=== PATIENT | female | born 1940 | race Caucasian/White ===

== ENCOUNTER → 2016-06-22 | Outpatient (CLI) | payer MEDICARE ==
[~2016-06-22] MED LIST: AUGMENTIN 875875 MG PO; AVELOX400 MG PO; BACTRIM DS 8001 TA1 PO; BREO ELLIPTA 11 EACH IH; CARDIZEM CD120 MG PO; CIPROFLOXACIN500 MG PO; COREG25 MG PO; CYCLOBENZAPRINE10 MG PO; DARVOCET N 1001 TAB PO; DIGOXIN PO; DIGOXIN0.25 MG PO; ELIQUIS5 M1 PO; HYDROCODONE BIT1 T11 PO; KEFLEX500 MG PO; KLOR-CON M2020 ME1 PO; KLOR-CON20 MEQ PO; LANOXIN0.125 MG PO; LEVOFLOXACIN500 MG PO; LISINOPRIL HCTZ PO; LISINOPRIL/HCTZ1 TA3 PO; MEDROL DOSEPAK4 MG PO; TAPAZOLE5 MG PO; ULTRAM50 MG PO; VICODIN 5/500 505 MG PO; VICODIN ES 7501 TAB PO; WARFARIN SOD5 MG PO; WARFARIN4 MG PO; ZITHROMAX Z PA250 MG PO; [UNRECOGNIZED DRUG - OTHER] PO
[2016-06-22 10:33] LABS: BASO % 0.6 % (0.0-1.0); EOS # 0.1 10*3/uL (0.0-0.4); EOS % 2.7 % (1.0-4.0); HEMATOCRIT 37.4 % (37.0-47.0); HEMOGLOBIN 11.8 g/dl (12.0-16.0); LYMPH # 1.3 10*3/uL (1.3-4.4); LYMPH % 25.1 % (27.0-41.0); MEAN CELL VOLUME 82.6 fl (81.0-99.0); MEAN CORPUSCULAR HGB CONC 31.6 g/dl (33.0-37.0); MEAN PLATELET VOLUME 9.4 fl (9.6-12.3); MONO # 0.5 10*3/uL (0.1-1.0); MONO % 9.1 % (3.0-9.0); NEUT # 3.2 10*3/uL (2.3-7.9); NEUT % 62.3 % (47.0-73.0); PLATELET COUNT AUTOMATED 237 10*3/uL (130-400); RED BLOOD COUNT 4.53 10*6/uL (4.10-5.10); RED CELL DISTRI WIDTH 15.3 % (0-14.5); WHITE BLOOD COUNT 5.2 10*3/uL (4.8-10.8)
[2016-06-22 11:00] LABS: ALBUMIN 3.4 gm/dl (3.1-4.5); ALKALINE PHOSPHATASE 113 U/L (45-117); BILIRUBIN, DIRECT 0.1 mg/dL (0.0-0.2); BILIRUBIN, TOTAL 0.4 mg/dl (0.2-1.0); BUN 15 mg/dl (7-24); CARBON DIOXIDE 28 mmol/L (21-32); CHLORIDE 104 mmol/L (98-107); CHOLESTEROL 156 mg/dL (<200); EST GLOM FILT AFRICAN AMERICAN > 60 ml/min; GLUCOSE 84 mg/dL (65-99); HDL CHOLESTEROL 72 mg/dl (40-60); LDL CHOLESTEROL 62 mg/dL (9-159); POTASSIUM 4.3 mmol/L (3.5-5.1); SGOT/AST 13 IU/L (3-35); SGPT/ALT 17 U/L (12-78); SODIUM 140 mmol/L (136-145); THYROXINE (T4) TOTAL 10.6 ug/dl (4.8-13.9); TOTAL PROTEIN 7.1 gm/dL (6.4-8.2); TRIGLYCERIDES 108 mg/dl (<150); VLDL CHOLESTEROL 22 mg/dL (6-40)
[2016-06-23 07:08] LABS: FREE T3 010389 3.1 pg/mL (2.0-4.4); THYROID PEROXIDASE (TPO) AB 8 IU/mL (0-34)
[2016-06-25 16:13] LABS: THYROGLOBULIN ANTIBODY <1.0 IU/mL (0.0-0.9)
== END | disposition home or self-care (01) ==
LOC: LAB 10:12
PROVIDERS: Family Medicine
DX: I10 Essential (primary) hypertension (principal); J44.9 Chronic obstructive pulmonary disease, unspecified; E03.9 Hypothyroidism, unspecified; I49.9 Cardiac arrhythmia, unspecified

== ENCOUNTER 2016-09-09 17:10 | Emergency (ER) | payer MEDICARE ==
[~2016-09-09] VITALS: Wt 72.6 kg
[2016-09-09 17:11] VITALS: BP 160/65
== END 2016-09-09 18:23 | disposition home or self-care (01) ==
LOC: ED 17:10
DX: G89.29 Other chronic pain (principal); M54.6 Pain in thoracic spine; R03.0 Elevated blood-pressure reading, without diagnosis of hypertension; Z79.899 Other long term (current) drug therapy; Z95.0 Presence of cardiac pacemaker

== ENCOUNTER → 2016-11-17 | Outpatient (CLI) | payer MEDICARE ==
[2016-11-17 09:45] LABS: BASO % 0.6 % (0.0-1.0); EOS # 0.1 10*3/uL (0.0-0.4); EOS % 2.4 % (1.0-4.0); HEMATOCRIT 36.4 % (37.0-47.0); HEMOGLOBIN 11.3 g/dl (12.0-16.0); LYMPH # 1.2 10*3/uL (1.3-4.4); MEAN CELL VOLUME 83.7 fl (81.0-99.0); MONO # 0.6 10*3/uL (0.1-1.0); MONO % 10.6 % (3.0-9.0); NEUT # 3.4 10*3/uL (2.3-7.9); PLATELET COUNT AUTOMATED 234 10*3/uL (130-400); RED BLOOD COUNT 4.35 10*6/uL (4.10-5.10); RED CELL DISTRI WIDTH 15.2 % (0-14.5); WHITE BLOOD COUNT 5.4 10*3/uL (4.8-10.8)
[2016-11-17 09:54] LABS: ALBUMIN 3.5 gm/dl (3.1-4.5); ALKALINE PHOSPHATASE 121 U/L (45-117); BILIRUBIN, DIRECT 0.1 mg/dL (0.0-0.2); BILIRUBIN, TOTAL 0.5 mg/dl (0.2-1.0); BUN 19 mg/dl (7-24); CARBON DIOXIDE 31 mmol/L (21-32); CHLORIDE 104 mmol/L (98-107); EST GLOM FILT AFRICAN AMERICAN > 60 ml/min; GLUCOSE 108 mg/dL (65-99); POTASSIUM 4.3 mmol/L (3.5-5.1); SGOT/AST 13 IU/L (3-35); SGPT/ALT 17 U/L (12-78); SODIUM 139 mmol/L (136-145)
== END | disposition home or self-care (01) ==
LOC: LAB 09:13
PROVIDERS: Family Medicine
DX: I48.91 Unspecified atrial fibrillation (principal)

== ENCOUNTER 2016-12-03 01:52 | Emergency (ER) | payer MEDICARE ==
[~2016-12-03] VITALS: Ht 172.7 cm; Wt 74.8 kg
[2016-12-03 03:17] LABS: BASO % 0.4 % (0.0-1.0); EOS # 0.1 10*3/uL (0.0-0.4); EOS % 1.3 % (1.0-4.0); HEMATOCRIT 41.1 % (37.0-47.0); HEMOGLOBIN 13.2 g/dl (12.0-16.0); LYMPH # 1.5 10*3/uL (1.3-4.4); LYMPH % 15.7 % (27.0-41.0); MEAN CELL VOLUME 81.9 fl (81.0-99.0); MEAN CORPUSCULAR HGB 26.3 pg (27.0-31.0); MEAN CORPUSCULAR HGB CONC 32.1 g/dl (33.0-37.0); MEAN PLATELET VOLUME 10.6 fl (9.6-12.3); MONO # 0.8 10*3/uL (0.1-1.0); MONO % 7.9 % (3.0-9.0); NEUT # 7.1 10*3/uL (2.3-7.9); NEUT % 74.3 % (47.0-73.0); PLATELET COUNT AUTOMATED 267 10*3/uL (130-400); RED BLOOD COUNT 5.02 10*6/uL (4.10-5.10); RED CELL DISTRI WIDTH 14.9 % (0-14.5); WHITE BLOOD COUNT 9.6 10*3/uL (4.8-10.8)
[2016-12-03 03:32] LABS: ALBUMIN 3.7 gm/dl (3.1-4.5); CREATININE 1.19 mg/dL (0.55-1.02); MAGNESIUM 2.1 mg/dL (1.5-2.1); POTASSIUM 3.8 mmol/L (3.5-5.1); TOTAL PROTEIN 8.1 gm/dL (6.4-8.2)
[2016-12-03 03:50] VITALS: BP 168/90
[2016-12-03] MEDS ORDERED: NORCO 5-325 TA1 EACH PO (04:28)
== END 2016-12-03 04:58 | disposition home or self-care (01) ==
LOC: ED 01:52
PROVIDERS: Emergency Medicine Emergency Medical Services
DX: M51.36 Other intervertebral disc degeneration, lumbar region (principal); Z79.899 Other long term (current) drug therapy

== ENCOUNTER 2016-12-17 14:27 | Emergency (ER) | payer MEDICARE ==
[~2016-12-17] VITALS: Ht 167.6 cm; Wt 72.6 kg
[~2016-12-17 14:27] MED LIST changes: +NORCO 5-325 TA1 EACH PO
[2016-12-17 14:53] VITALS: BP 157/91
[2016-12-17 16:25] LABS: BILIRUBIN NEGATIVE (NEGATIVE); BLOOD 2+ (NEGATIVE); CLARITY SL CLOUDY (CLEAR); COLOR YELLOW (YELLOW); GLUCOSE NEGATIVE (NEGATIVE); KETONE NEGATIVE (NEGATIVE); LEUKO ESTERASE 3+ (NEGATIVE); NITRITE POSITIVE (NEGATIVE); PH 6.5 (5.0-9.0)
[2016-12-17 16:40] LABS: BACTERIA 4+; WBC 51-100 wbc/hpf (0-5)
[2016-12-17] MEDS ORDERED: AMINOPHYLLIN200 MG PO (18:03)
== END 2016-12-17 18:38 | disposition home or self-care (01) ==
LOC: ED 14:27
PROVIDERS: Physician Assistant
DX: N39.0 Urinary tract infection, site not specified (principal); M54.5 Low back pain; Z95.0 Presence of cardiac pacemaker; Z79.899 Other long term (current) drug therapy

== ENCOUNTER → 2016-12-22 | Outpatient (CLI) | payer MEDICARE ==
[~2016-12-22] MED LIST changes: +AMINOPHYLLIN200 MG PO
== END | disposition home or self-care (01) ==
LOC: LAB 09:42
DX: I20.9 Angina pectoris, unspecified (principal); R73.9 Hyperglycemia, unspecified; R79.89 Other specified abnormal findings of blood chemistry

== ENCOUNTER 2017-01-11 09:39 | Emergency (ER) | payer MEDICARE ==
[~2017-01-11] VITALS: Ht 170.1 cm; Wt 75.7 kg
[2017-01-11 09:43] VITALS: BP 127/67
[2017-01-11 10:37] LABS: BASO % 0.4 % (0.0-1.0); EOS # 0.1 10*3/uL (0.0-0.4); EOS % 1.8 % (1.0-4.0); HEMATOCRIT 40.4 % (37.0-47.0); HEMOGLOBIN 12.9 g/dl (12.0-16.0); LYMPH # 1.2 10*3/uL (1.3-4.4); MEAN CELL VOLUME 82.4 fl (81.0-99.0); MEAN CORPUSCULAR HGB 26.3 pg (27.0-31.0); MEAN CORPUSCULAR HGB CONC 31.9 g/dl (33.0-37.0); MONO # 0.7 10*3/uL (0.1-1.0); NEUT # 5.3 10*3/uL (2.3-7.9); NEUT % 72.5 % (47.0-73.0); PLATELET COUNT AUTOMATED 278 10*3/uL (130-400); RED CELL DISTRI WIDTH 15.8 % (0-14.5); WHITE BLOOD COUNT 7.2 10*3/uL (4.8-10.8)
[2017-01-11 10:56] LABS: CREATININE 1.42 mg/dL (0.55-1.02); MAGNESIUM 2.3 mg/dL (1.5-2.1); POTASSIUM 4.4 mmol/L (3.5-5.1); TOTAL PROTEIN 8.2 gm/dL (6.4-8.2)
[2017-01-11 11:07] LABS: DIGOXIN 1.09 ng/ml (0.8-2.0)
[2017-01-11 13:12] LABS: BILIRUBIN NEGATIVE (NEGATIVE); BLOOD 1+ (NEGATIVE); CLARITY SL CLOUDY (CLEAR); COLOR YELLOW (YELLOW); GLUCOSE NEGATIVE (NEGATIVE); KETONE TRACE (NEGATIVE); LEUKO ESTERASE NEGATIVE (NEGATIVE); NITRITE NEGATIVE (NEGATIVE); PH 5.5 (5.0-9.0); SPECIFIC GRAVITY 1.015 (1.005-1.030)
[2017-01-11 13:28] LABS: MUCOUS 1+
[2017-01-11] MEDS ORDERED: PERCOCET 5-3251 EACH PO (14:03)
[2017-01-11] MEDS ORDERED: PREDNISONE50 MG PO (14:03)
== END 2017-01-11 14:47 | disposition home or self-care (01) ==
LOC: ED 09:39
PROVIDERS: Emergency Medicine
DX: S39.012A Strain of muscle, fascia and tendon of lower back, initial encounter (principal); M19.90 Unspecified osteoarthritis, unspecified site; G89.29 Other chronic pain; Z95.0 Presence of cardiac pacemaker; Z79.899 Other long term (current) drug therapy; X50.9XXA Other and unspecified overexertion or strenuous movements or postures, initial encounter; Y93.89 Activity, other specified; Y92.89 Other specified places as the place of occurrence of the external cause; Y99.9 Unspecified external cause status

== ENCOUNTER → 2017-03-11 | Outpatient (CLI) | payer MEDICARE ==
[~2017-03-11] MED LIST changes: +PERCOCET 5-3251 EACH PO; +PREDNISONE50 MG PO
[2017-03-11 14:33] LABS: BASO % 0.5 % (0.0-1.0); EOS # 0.2 10*3/uL (0.0-0.4); HEMATOCRIT 36.3 % (37.0-47.0); HEMOGLOBIN 11.8 g/dl (12.0-16.0); LYMPH # 1.9 10*3/uL (1.3-4.4); LYMPH % 23.6 % (27.0-41.0); MEAN CELL VOLUME 84.6 fl (81.0-99.0); MEAN CORPUSCULAR HGB 27.5 pg (27.0-31.0); MEAN CORPUSCULAR HGB CONC 32.5 g/dl (33.0-37.0); MEAN PLATELET VOLUME 10.5 fl (9.6-12.3); MONO # 0.9 10*3/uL (0.1-1.0); MONO % 11.3 % (3.0-9.0); NEUT # 5.1 10*3/uL (2.3-7.9); NEUT % 62.2 % (47.0-73.0); PLATELET COUNT AUTOMATED 260 10*3/uL (130-400); RED BLOOD COUNT 4.29 10*6/uL (4.10-5.10); RED CELL DISTRI WIDTH 15.5 % (0-14.5); WHITE BLOOD COUNT 8.2 10*3/uL (4.8-10.8)
[2017-03-11 14:54] LABS: ALBUMIN 3.9 gm/dl (3.1-4.5); BILIRUBIN, DIRECT 0.3 mg/dL (0.0-0.2); CREATININE 1.33 mg/dL (0.55-1.02); TOTAL PROTEIN 7.5 gm/dL (6.4-8.2)
== END | disposition home or self-care (01) ==
LOC: LAB 13:51
PROVIDERS: Family Medicine
DX: M81.0 Age-related osteoporosis without current pathological fracture (principal); I10 Essential (primary) hypertension

== ENCOUNTER 2017-03-29 07:18 | Emergency (ER) | payer MEDICARE ==
[~2017-03-29] VITALS: Ht 167.6 cm; Wt 74.8 kg
[2017-03-29 07:27] VITALS: BP 132/68
== END 2017-03-29 07:38 | disposition home or self-care (01) ==
LOC: ED 07:18
DX: G89.29 Other chronic pain (principal); M54.5 Low back pain; Z95.0 Presence of cardiac pacemaker; Z79.899 Other long term (current) drug therapy

== ENCOUNTER → 2017-04-10 | Outpatient (CLI) | payer MEDICARE | END | disposition home or self-care (01) | LOC: CT 14:55 | DX: M81.0 Age-related osteoporosis without current pathological fracture (principal); M47.894 Other spondylosis, thoracic region; M48.04 Spinal stenosis, thoracic region; D18.09 Hemangioma of other sites; M54.9 Dorsalgia, unspecified; M48.54XA Collapsed vertebra, not elsewhere classified, thoracic region, initial encounter for fracture ==

== ENCOUNTER 2017-06-18 14:43 | Emergency (ER) | payer MEDICARE ==
[~2017-06-18] VITALS: Ht 165.1 cm; Wt 73.5 kg
[2017-06-18 16:02] LABS: BILIRUBIN 1+ (NEGATIVE); BLOOD 1+ (NEGATIVE); CLARITY CLOUDY (CLEAR); COLOR YELLOW (YELLOW); GLUCOSE NEGATIVE (NEGATIVE); KETONE NEGATIVE (NEGATIVE); LEUKO ESTERASE 3+ (NEGATIVE); NITRITE NEGATIVE (NEGATIVE); PH 7.5 (5.0-9.0); SPECIFIC GRAVITY 1.015 (1.005-1.030)
[2017-06-18 16:10] LABS: WBC TNTC wbc/hpf (0-5)
[2017-06-18] MEDS ORDERED: SEPTDS PO (16:13)
[2017-06-18 16:29] VITALS: BP 126/88
== END 2017-06-18 16:24 | disposition home or self-care (01) ==
LOC: ED 14:43
PROVIDERS: Physician Assistant
DX: N30.01 Acute cystitis with hematuria (principal); Z79.899 Other long term (current) drug therapy

== ENCOUNTER → 2017-07-17 | Outpatient (CLI) | payer MEDICARE ==
[~2017-07-17] MED LIST changes: +SEPTDS PO
[2017-07-17 09:24] LABS: BASO % 0.4 % (0.0-1.0); EOS # 0.2 10*3/uL (0.0-0.4); EOS % 2.8 % (1.0-4.0); HEMATOCRIT 33.5 % (37.0-47.0); HEMOGLOBIN 10.6 g/dl (12.0-16.0); LYMPH # 1.8 10*3/uL (1.3-4.4); LYMPH % 32.3 % (27.0-41.0); MEAN CELL VOLUME 87.7 fl (81.0-99.0); MEAN CORPUSCULAR HGB 27.7 pg (27.0-31.0); MEAN CORPUSCULAR HGB CONC 31.6 g/dl (33.0-37.0); MEAN PLATELET VOLUME 9.8 fl (9.6-12.3); MONO # 0.7 10*3/uL (0.1-1.0); MONO % 11.7 % (3.0-9.0); NEUT % 52.4 % (47.0-73.0); PLATELET COUNT AUTOMATED 228 10*3/uL (130-400); RED BLOOD COUNT 3.82 10*6/uL (4.10-5.10); RED CELL DISTRI WIDTH 15.4 % (0-14.5); WHITE BLOOD COUNT 5.6 10*3/uL (4.8-10.8)
[2017-07-17 09:53] LABS: ALBUMIN 3.4 gm/dl (3.1-4.5); BILIRUBIN, DIRECT 0.1 mg/dL (0.0-0.2); CREATININE 1.25 mg/dL (0.55-1.02); POTASSIUM 4.2 mmol/L (3.5-5.1); THYROXINE (T4) TOTAL 9.5 ug/dl (4.8-13.9); TOTAL PROTEIN 6.9 gm/dL (6.4-8.2)
== END | disposition home or self-care (01) ==
LOC: LAB 09:03
PROVIDERS: Family Medicine
DX: E04.9 Nontoxic goiter, unspecified (principal); E05.90 Thyrotoxicosis, unspecified without thyrotoxic crisis or storm

== ENCOUNTER → 2017-09-03 | Outpatient (CLI) | payer MEDICARE | END | disposition home or self-care (01) | LOC: LAB 11:11 | DX: J44.9 Chronic obstructive pulmonary disease, unspecified (principal); I51.7 Cardiomegaly; D64.9 Anemia, unspecified; I48.91 Unspecified atrial fibrillation; I10 Essential (primary) hypertension; Z95.0 Presence of cardiac pacemaker ==

== ENCOUNTER → 2018-02-19 | Outpatient (CLI) | payer MEDICARE ==
[~2018-02-19] MED LIST changes: +TRIAMTERENE & H1 CAP PO
[2018-02-19 11:44] LABS: BASO % 0.6 % (0.0-1.0); EOS # 0.1 10*3/uL (0.0-0.4); EOS % 1.8 % (1.0-4.0); HEMATOCRIT 39.5 % (37.0-47.0); HEMOGLOBIN 12.8 g/dl (12.0-16.0); LYMPH # 1.8 10*3/uL (1.3-4.4); LYMPH % 27.7 % (27.0-41.0); MEAN CELL VOLUME 84.8 fl (81.0-99.0); MEAN CORPUSCULAR HGB 27.5 pg (27.0-31.0); MEAN CORPUSCULAR HGB CONC 32.4 g/dl (33.0-37.0); MEAN PLATELET VOLUME 10.2 fl (9.6-12.3); MONO # 0.6 10*3/uL (0.1-1.0); MONO % 8.5 % (3.0-9.0); NEUT % 61.2 % (47.0-73.0); PLATELET COUNT AUTOMATED 238 10*3/uL (130-400); RED BLOOD COUNT 4.66 10*6/uL (4.10-5.10); RED CELL DISTRI WIDTH 14.2 % (0-14.5); WHITE BLOOD COUNT 6.6 10*3/uL (4.8-10.8)
[2018-02-19 12:06] LABS: ALBUMIN 3.5 gm/dl (3.1-4.5); BILIRUBIN, DIRECT 0.2 mg/dL (0.0-0.2); CREATININE 1.33 mg/dL (0.55-1.02); FREE T4 1.1 ng/dl (0.76-1.46); POTASSIUM 3.6 mmol/L (3.5-5.1); THYROXINE (T4) TOTAL 10.4 ug/dl (4.8-13.9); TOTAL PROTEIN 7.2 gm/dL (6.4-8.2)
[2018-02-19 12:12] LABS: THYROID STIM HORMONE (HS) 1.64 uIU/ml (0.358-4.75)
== END | disposition home or self-care (01) ==
LOC: LAB 11:09
PROVIDERS: Nurse Practitioner
DX: E03.9 Hypothyroidism, unspecified (principal)

== ENCOUNTER → 2018-05-29 | Outpatient (CLI) | payer MEDICARE ==
[2018-05-29 11:54] LABS: FREE T4 1.06 ng/dl (0.76-1.46)
[2018-05-29 11:58] LABS: THYROID STIM HORMONE (HS) 2.25 uIU/ml (0.358-4.75)
== END | disposition home or self-care (01) ==
LOC: LAB 10:58
PROVIDERS: Nurse Practitioner
DX: M43.14 Spondylolisthesis, thoracic region (principal); M85.88 Other specified disorders of bone density and structure, other site; M51.37 Other intervertebral disc degeneration, lumbosacral region; E03.9 Hypothyroidism, unspecified

== ENCOUNTER → 2018-11-29 | Outpatient (CLI) | payer MEDICARE ==
[2018-11-29 16:47] LABS: BASO # 0.1 10*3/uL (0.0-0.1); BASO % 0.8 % (0.0-1.0); EOS # 0.2 10*3/uL (0.0-0.4); HEMATOCRIT 39.7 % (37.0-47.0); HEMOGLOBIN 12.8 g/dl (12.0-16.0); LYMPH # 1.9 10*3/uL (1.3-4.4); MEAN CELL VOLUME 86.1 fl (81.0-99.0); MEAN CORPUSCULAR HGB 27.8 pg (27.0-31.0); MEAN CORPUSCULAR HGB CONC 32.2 g/dl (33.0-37.0); MEAN PLATELET VOLUME 10.4 fl (9.6-12.3); MONO # 0.8 10*3/uL (0.1-1.0); MONO % 10.6 % (3.0-9.0); NEUT # 4.6 10*3/uL (2.3-7.9); NEUT % 60.2 % (47.0-73.0); PLATELET COUNT AUTOMATED 272 10*3/uL (130-400); RED BLOOD COUNT 4.61 10*6/uL (4.10-5.10); RED CELL DISTRI WIDTH 14.6 % (0-14.5); WHITE BLOOD COUNT 7.6 10*3/uL (4.8-10.8)
[2018-11-29 17:02] LABS: ALBUMIN 3.7 gm/dl (3.1-4.5); BILIRUBIN, DIRECT 0.2 mg/dL (0.0-0.2); CREATININE 1.18 mg/dL (0.55-1.02); POTASSIUM 3.7 mmol/L (3.5-5.1); THYROXINE (T4) TOTAL 10.5 ug/dl (4.8-13.9); TOTAL PROTEIN 7.7 gm/dL (6.4-8.2)
[2018-11-29 17:03] LABS: FREE T4 1.22 ng/dl (0.76-1.46)
[2018-11-29 17:10] LABS: THYROID STIM HORMONE (HS) 1.78 uIU/ml (0.358-4.75)
== END | disposition home or self-care (01) ==
LOC: LAB 16:14
PROVIDERS: Family Medicine
DX: E04.9 Nontoxic goiter, unspecified (principal); E05.90 Thyrotoxicosis, unspecified without thyrotoxic crisis or storm; E03.9 Hypothyroidism, unspecified; E16.2 Hypoglycemia, unspecified

== ENCOUNTER → 2019-06-20 | Outpatient (CLI) | payer MEDICARE ==
[2019-06-20 13:44] LABS: BASO % 0.6 % (0.0-1.0); EOS # 0.2 10*3/uL (0.0-0.4); EOS % 2.5 % (1.0-4.0); HEMATOCRIT 40.1 % (37.0-47.0); HEMOGLOBIN 12.7 g/dl (12.0-16.0); LYMPH # 1.3 10*3/uL (1.3-4.4); MEAN CELL VOLUME 85.7 fl (81.0-99.0); MEAN CORPUSCULAR HGB 27.1 pg (27.0-31.0); MEAN CORPUSCULAR HGB CONC 31.7 g/dl (33.0-37.0); MEAN PLATELET VOLUME 9.7 fl (9.6-12.3); MONO # 0.6 10*3/uL (0.1-1.0); MONO % 9.2 % (3.0-9.0); NEUT # 4.3 10*3/uL (2.3-7.9); NEUT % 67.4 % (47.0-73.0); PLATELET COUNT AUTOMATED 263 10*3/uL (130-400); RED BLOOD COUNT 4.68 10*6/uL (4.10-5.10); RED CELL DISTRI WIDTH 14.6 % (0-14.5); WHITE BLOOD COUNT 6.4 10*3/uL (4.8-10.8)
[2019-06-20 13:58] LABS: ALBUMIN 3.5 gm/dl (3.1-4.5); BILIRUBIN, DIRECT 0.1 mg/dL (0.0-0.2); CREATININE 1.21 mg/dL (0.55-1.02); POTASSIUM 4.4 mmol/L (3.5-5.1); TOTAL PROTEIN 7.6 gm/dL (6.4-8.2)
== END | disposition home or self-care (01) ==
LOC: LAB 13:21
PROVIDERS: Family Medicine
DX: I48.91 Unspecified atrial fibrillation (principal)

== ENCOUNTER → 2019-10-13 | Outpatient (CLI) | payer MEDICARE ==
[2019-10-13 12:35] LABS: FREE T4 1.11 ng/dl (0.76-1.46); THYROID STIM HORMONE (HS) 1.42 uIU/ml (0.358-4.75)
== END | disposition home or self-care (01) ==
LOC: LAB 11:33
PROVIDERS: Internal Medicine Endocrinology, Diabetes & Metabolism
DX: E05.90 Thyrotoxicosis, unspecified without thyrotoxic crisis or storm (principal)

== ENCOUNTER 2019-11-09 13:28 | Emergency (ER) | payer MEDICARE ==
[2019-11-09 13:35] VITALS: BP 128/81
[2019-11-09] MEDS ORDERED: PERCOCET 5-3251 EACH PO (14:41)
[2019-11-09] MEDS ORDERED: NORCO 5-325 TA1 EACH PO (14:43)
== END 2019-11-09 14:09 | disposition home or self-care (01) ==
LOC: ED 13:28
DX: G89.29 Other chronic pain (principal); M54.9 Dorsalgia, unspecified; Z79.899 Other long term (current) drug therapy

== ENCOUNTER 2019-11-18 19:24 | Inpatient (IN) | payer MEDICARE ==
[~2019-11-18] VITALS: Ht 170.2 cm; Wt 65.9 kg
--- NOTE | 2019-11-18 19:28 | NUR ---
[facility] CALLED, SPOKE [place].NOTIFIED OF PT TAKING HER DAILY MEDICATIONS FROM YESTERDAY AND TODAY TOGETHER.PT HAS MULTIPLE MEDICATIONS, [facility] MOST CONCERNED WITH DOSAGE TAKEN OF 250MCG DIGOXIN, 20MG ELIQUIS, AND 100MG CARVEDILOL.REQUEST CONTACT [phone] WHEN PT ARRIVES.
[2019-11-18 19:30] VITALS: BP 112/86
[2019-11-18 19:38] VITALS: BP 123/57
[2019-11-18 20:09] LABS: BASO % 0.3 % (0.0-1.0); EOS # 0.1 10*3/uL (0.0-0.4); EOS % 1.6 % (1.0-4.0); HEMATOCRIT 34.1 % (37.0-47.0); LYMPH # 1.3 10*3/uL (1.3-4.4); LYMPH % 18.8 % (27.0-41.0); MEAN CELL VOLUME 85.5 fl (81.0-99.0); MEAN CORPUSCULAR HGB 27.6 pg (27.0-31.0); MEAN CORPUSCULAR HGB CONC 32.3 g/dl (33.0-37.0); MEAN PLATELET VOLUME 9.9 fl (9.6-12.3); MONO # 0.9 10*3/uL (0.1-1.0); MONO % 13.6 % (3.0-9.0); NEUT # 4.4 10*3/uL (2.3-7.9); NEUT % 65.4 % (47.0-73.0); PLATELET COUNT AUTOMATED 203 10*3/uL (130-400); RED BLOOD COUNT 3.99 10*6/uL (4.10-5.10); RED CELL DISTRI WIDTH 15.3 % (0-14.5); WHITE BLOOD COUNT 6.7 10*3/uL (4.8-10.8)
[2019-11-18 20:21] LABS: BUN 24 mg/dl (7-24); CHLORIDE 102 mmol/L (98-107); POTASSIUM 3.9 mmol/L (3.5-5.1); SODIUM 137 mmol/L (136-145)
[2019-11-18 20:23] LABS: ETHYL ALCOHOL < 3.0 mg/dl (<3)
[2019-11-18 20:24] LABS: ACETAMINOPHEN (TYLENOL) < 5.0 ug/ml (10-30)
[2019-11-18 20:36] LABS: DIGOXIN 1.47 ng/ml (0.8-2.0)
--- NOTE | 2019-11-18 20:47 | NUR ---
[facility] CONTACTED TO UPDATE ON PT ARRIVAL.MD CALDWELL SPOKE WITH [facility]ISON [facility]OL.
--- NOTE | 2019-11-18 21:07 | NUR ---
PT ATTEMPTED TO PROVIDE URINE SPECIMEN.PT UNABLE TO AT THIS TIME.PT RESTING IN BED.
[2019-11-18] MEDS ORDERED: CARTIA XT120 MG PO (21:20)
[2019-11-18 21:22] VITALS: BP 124/57
--- NOTE | 2019-11-18 21:23 | NUR ---
PT AND DAUGHTER DENY ANY WOUNDS,SORES OR CUTS AT THIS TIME.PT DAUGHTER , JUS, REQUEST PASSWORD "[id number]"
[2019-11-18 23:05] VITALS: BP 134/67
--- NOTE | 2019-11-18 23:05 | NUR ---
A 79, admitted to [facility]U, under the services of COLLIN Marrero DO with a diagnosis of accidental overdose. Chief complaint is pt took 2 days worth of medications at same time today. Patient arrived via stretcher from ER. Monitor applied. Initial assessment completed. Vital signs taken and recorded. COLLIN MARRERO DO notified of admission to the unit. Orders received. See assessment for past medical history, medications and allergies. Patient and/or family oriented to unit. [facility] visitation policy reviewed. Clothing/patient valuable form completed. RALPH DANG
[2019-11-18 23:15] VITALS: BP 114/54
--- NOTE | 2019-11-18 23:29 | NUR ---
DR EM EXAMINES PT. CONDITION DISCUSSED.
[2019-11-19 00:34] LABS: CREATININE 1.08 mg/dL (0.55-1.02); POTASSIUM 3.1 mmol/L (3.5-5.1)
[2019-11-19 00:48] LABS: DIGOXIN 1.19 ng/ml (0.8-2.0)
--- NOTE | 2019-11-19 00:53 | NUR ---
DR EM NOTIFIED OF MIDNIGHT LAB RESULTS.
--- NOTE | 2019-11-19 02:40 | NUR ---
PT ACCIDENTALLY PULLED OUT HER IV IN [place]. NEW IV STARTED RT ARM AND COMPLETE GOWN AND BED LINEN CHANGE DONE. PT TOLERATED WELL.
[2019-11-19 04:00] VITALS: BP 122/65
--- NOTE | 2019-11-19 05:20 | NUR ---
ASSISTED UP TO BSC TO VOID. LABS DRAWN FROM IV SITE. URINE SPECIMENS COLLECTED ORDERED. PT WITHOUT COMPLAINTS.
[2019-11-19 06:03] LABS: BILIRUBIN NEGATIVE (NEGATIVE); BLOOD 1+ (NEGATIVE); CLARITY CLEAR (CLEAR); COLOR YELLOW (YELLOW); GLUCOSE NEGATIVE (NEGATIVE); KETONE NEGATIVE (NEGATIVE); LEUKO ESTERASE 2+ (NEGATIVE); NITRITE NEGATIVE (NEGATIVE); PH 7.5 (5.0-9.0); SPECIFIC GRAVITY 1.005 (1.005-1.030); URINE AMPHETAMINES < 1000 (1000ng/ml); URINE BARBITURATES < 200 (200ng/ml); URINE BENZODIAZEPINES < 200 (200ng/ml); URINE CANNABINOIDS (THC) < 50 (50ng/ml); URINE COCAINE < 300 (300ng/ml); URINE METHADONE < 300 (300ng/ml); URINE OPIATES > 300 (300ng/ml); UROBILINOGEN 0.2 E.U./dl (0.2-1.0)
[2019-11-19 06:06] LABS: BACTERIA 1+
[2019-11-19 06:09] LABS: URINE PHENCYCLIDINE < 25 (25ng/ml)
--- NOTE | 2019-11-19 06:47 | NUR ---
MARGARITA, FROM [facility], CALLS TO CHECK ON PT CONDITION.
[2019-11-19 07:11] LABS: BASO % 0.5 % (0.0-1.0); EOS # 0.1 10*3/uL (0.0-0.4); EOS % 1.8 % (1.0-4.0); HEMATOCRIT 31.9 % (37.0-47.0); LYMPH # 1.1 10*3/uL (1.3-4.4); LYMPH % 18.7 % (27.0-41.0); MEAN CELL VOLUME 84.4 fl (81.0-99.0); MEAN CORPUSCULAR HGB 27.2 pg (27.0-31.0); MEAN CORPUSCULAR HGB CONC 32.3 g/dl (33.0-37.0); MEAN PLATELET VOLUME 10.9 fl (9.6-12.3); MONO # 0.7 10*3/uL (0.1-1.0); MONO % 12.8 % (3.0-9.0); NEUT # 3.7 10*3/uL (2.3-7.9); PLATELET COUNT AUTOMATED 182 10*3/uL (130-400); RED BLOOD COUNT 3.78 10*6/uL (4.10-5.10); RED CELL DISTRI WIDTH 15.1 % (0-14.5); WHITE BLOOD COUNT 5.6 10*3/uL (4.8-10.8)
[2019-11-19 07:28] LABS: ALBUMIN 3.1 gm/dl (3.1-4.5); BUN 19 mg/dl (7-24); CHLORIDE 105 mmol/L (98-107); CREATININE 0.95 mg/dL (0.55-1.02); POTASSIUM 3.6 mmol/L (3.5-5.1); SGOT/AST 9 IU/L (3-35); SGPT/ALT 15 U/L (12-78); SODIUM 140 mmol/L (136-145); TOTAL PROTEIN 6.6 gm/dL (6.4-8.2)
[2019-11-19 07:41] LABS: ALKALINE PHOSPHATASE 77 U/L (45-117); DIGOXIN 1.23 ng/ml (0.8-2.0); THYROID STIM HORMONE (HS) 0.316 uIU/ml (0.358-4.75)
[2019-11-19 08:00] VITALS: BP 118/60
--- NOTE | 2019-11-19 08:52 | NUR ---
ON ASSESSMENT PATIENT IS ALERT, KNOWS SHE'S IN THE HOSPITAL AND IS ASKING "WHEN CAN I GO HOME?" ONE TIME BAG IV FLUIDS INFUSING AT 80/HR. ROOM AIR, NO C/O PAIN. DAUGHTER HAS PHONED IN AND STATES "SHE HAS SOME DEMENTIA AND I'M GOING TO HAVE TO HAND HER THE MEDS FROM NOW ON". SEE ALL APPROPRIATE INTERVENTIONS.
--- NOTE | 2019-11-19 12:28 | NUR ---
CM spoke to daughter, Lisa, regarding discharge planning. Her mother lives with her. She lives upstairs, there are 12 steps for patient to get up to her bedroom. She states her mother needs minimal assistance with her ADLs and uses no assistive devices for ambulation. Discussed home health care services and she declines. Her PCP is Dr. Chuy Blanchard and she uses [facility]. She has a machine that reads her PMR every morning at 2am. Patient does have her own phone line that the PMR machine is connected to. When medically stable she will be discharged to home. Lisa states she will provide transportation on discharge. CM will continue to follow for any discharge planning needs.
--- NOTE | 2019-11-19 13:11 | NUR ---
DISCHARGE INSTRUCTIONS TO PATIENT AND OVER THE PHONE TO HER DAUGHTER. MONITOR AND IV REMOVED. PT TAKEN VIA W/C, IN STABLE CONDITION, TO ER ENTRANCE WHERE HER DAUGHTER WAS WAITING.
--- NOTE | 2019-11-19 13:33 | NUR ---
Faxed home health order to [facility]
== END 2019-11-19 13:11 | disposition home or self-care (01) | DRG 917 ==
LOC: ED 19:24 → ICCU 22:16 → EDHOLD 22:16 → ICCU 22:22
PROVIDERS: Emergency Medicine; Student in an Organized Health Care Education/Training Program; ADMIT Internal Medicine
DX: T46.0X1A Poisoning by cardiac-stimulant glycosides and drugs of similar action, accidental (unintentional), initial encounter (principal); N17.0 Acute kidney failure with tubular necrosis; I13.0 Hypertensive heart and chronic kidney disease with heart failure and stage 1 through stage 4 chronic kidney disease, or unspecified chronic kidney disease; T46.1X1A Poisoning by calcium-channel blockers, accidental (unintentional), initial encounter; T44.7X1A Poisoning by beta-adrenoreceptor antagonists, accidental (unintentional), initial encounter; R06.82 Tachypnea, not elsewhere classified; D64.9 Anemia, unspecified; E87.6 Hypokalemia; R73.9 Hyperglycemia, unspecified; Z95.0 Presence of cardiac pacemaker; N18.3 Chronic kidney disease, stage 3 (moderate); I48.91 Unspecified atrial fibrillation; J44.9 Chronic obstructive pulmonary disease, unspecified; I25.10 Atherosclerotic heart disease of native coronary artery without angina pectoris; F03.90 Unspecified dementia, unspecified severity, without behavioral disturbance, psychotic disturbance, mood disturbance, and anxiety; M19.90 Unspecified osteoarthritis, unspecified site; G89.29 Other chronic pain; M51.36 Other intervertebral disc degeneration, lumbar region; M47.816 Spondylosis without myelopathy or radiculopathy, lumbar region; I50.9 Heart failure, unspecified; E05.90 Thyrotoxicosis, unspecified without thyrotoxic crisis or storm; Y92.89 Other specified places as the place of occurrence of the external cause; Z79.01 Long term (current) use of anticoagulants; Z79.899 Other long term (current) drug therapy; Z90.710 Acquired absence of both cervix and uterus; Z87.891 Personal history of nicotine dependence

== ENCOUNTER → 2020-03-07 | Outpatient (CLI) | payer MEDICARE ==
[~2020-03-07] MED LIST changes: +CARTIA XT120 MG PO
[2020-03-07 11:06] LABS: BASO % 0.7 % (0.0-1.0); EOS # 0.2 10*3/uL (0.0-0.4); HEMATOCRIT 34.4 % (37.0-47.0); LYMPH # 1.1 10*3/uL (1.3-4.4); MEAN CELL VOLUME 88.2 fl (81.0-99.0); MEAN CORPUSCULAR HGB 27.4 pg (27.0-31.0); MEAN CORPUSCULAR HGB CONC 31.1 g/dl (33.0-37.0); MEAN PLATELET VOLUME 9.5 fl (9.6-12.3); MONO # 0.5 10*3/uL (0.1-1.0); MONO % 8.9 % (3.0-9.0); NEUT # 3.6 10*3/uL (2.3-7.9); NEUT % 66.2 % (47.0-73.0); PLATELET COUNT AUTOMATED 220 10*3/uL (130-400); WHITE BLOOD COUNT 5.4 10*3/uL (4.8-10.8)
[2020-03-07 11:38] LABS: ALBUMIN 3.3 gm/dl (3.1-4.5); BILIRUBIN, DIRECT 0.2 mg/dL (0.0-0.2); CREATININE 1.19 mg/dL (0.55-1.02); POTASSIUM 4.1 mmol/L (3.5-5.1); TOTAL PROTEIN 7.1 gm/dL (6.4-8.2)
[2020-03-07 11:42] LABS: THYROID STIM HORMONE (HS) 1.24 uIU/ml (0.358-4.75); THYROXINE (T4) TOTAL 8.5 ug/dl (4.8-13.9)
== END | disposition home or self-care (01) ==
LOC: LAB 10:46
PROVIDERS: Family Medicine; ATTEND Internal Medicine Endocrinology, Diabetes & Metabolism
DX: I10 Essential (primary) hypertension (principal); E05.90 Thyrotoxicosis, unspecified without thyrotoxic crisis or storm; E55.9 Vitamin D deficiency, unspecified; Z79.899 Other long term (current) drug therapy

== ENCOUNTER → 2020-05-14 | Outpatient (CLI) | payer MEDICARE ==
[2020-05-14 13:41] LABS: FREE T4 1.17 ng/dl (0.76-1.46)
[2020-05-14 13:45] LABS: THYROID STIM HORMONE (HS) 1.01 uIU/ml (0.358-4.75)
== END | disposition home or self-care (01) ==
LOC: LAB 12:49
PROVIDERS: ATTEND Internal Medicine Endocrinology, Diabetes & Metabolism
DX: E05.90 Thyrotoxicosis, unspecified without thyrotoxic crisis or storm (principal)

== ENCOUNTER → 2020-09-03 | Outpatient (CLI) | payer MEDICARE ==
[2020-09-03 15:49] LABS: BASO % 0.3 % (0.0-1.0); EOS # 0.1 10*3/uL (0.0-0.4); HEMATOCRIT 38.4 % (37.0-47.0); LYMPH # 0.7 10*3/uL (1.3-4.4); MEAN CELL VOLUME 82.8 fl (81.0-99.0); MEAN CORPUSCULAR HGB 25.9 pg (27.0-31.0); MEAN CORPUSCULAR HGB CONC 31.3 g/dl (33.0-37.0); MEAN PLATELET VOLUME 10.1 fl (9.6-12.3); MONO # 0.9 10*3/uL (0.1-1.0); MONO % 9.5 % (3.0-9.0); NEUT % 81.8 % (47.0-73.0); PLATELET COUNT AUTOMATED 318 10*3/uL (130-400); RED BLOOD COUNT 4.64 10*6/uL (4.10-5.10); RED CELL DISTRI WIDTH 14.9 % (0-14.5); WHITE BLOOD COUNT 9.7 10*3/uL (4.8-10.8)
[2020-09-03 16:03] LABS: ALBUMIN 3.3 gm/dl (3.1-4.5); BILIRUBIN, DIRECT 0.2 mg/dL (0.0-0.2); CREATININE 1.16 mg/dL (0.55-1.02); FREE T4 1.62 ng/dl (0.76-1.46); POTASSIUM 3.9 mmol/L (3.5-5.1); TOTAL PROTEIN 7.6 gm/dL (6.4-8.2)
[2020-09-03 16:10] LABS: THYROID STIM HORMONE (HS) 0.059 uIU/ml (0.358-4.75)
== END | disposition home or self-care (01) ==
LOC: LAB 14:43
PROVIDERS: ATTEND Internal Medicine Endocrinology, Diabetes & Metabolism
DX: I10 Essential (primary) hypertension (principal); E05.90 Thyrotoxicosis, unspecified without thyrotoxic crisis or storm

== ENCOUNTER 2020-12-31 13:02 | Emergency (ER) | payer MEDICARE ==
[~2020-12-31] VITALS: Ht 177.8 cm; Wt 63.5 kg
[2020-12-31 14:04] VITALS: BP 140/62
[2020-12-31] MEDS ORDERED: PREDNISONE50 MG PO (14:45)
== END 2020-12-31 15:41 | disposition home or self-care (01) ==
LOC: ED 13:02
DX: M47.816 Spondylosis without myelopathy or radiculopathy, lumbar region (principal); Z79.899 Other long term (current) drug therapy; Z95.0 Presence of cardiac pacemaker; Z90.711 Acquired absence of uterus with remaining cervical stump; Z90.89 Acquired absence of other organs; Z87.891 Personal history of nicotine dependence

== ENCOUNTER → 2021-05-09 | Outpatient (CLI) | payer MEDICARE ==
[2021-05-09 12:14] LABS: BASO % 0.4 % (0.0-1.0); EOS # 0.1 10*3/uL (0.0-0.4); EOS % 1.8 % (1.0-4.0); HEMATOCRIT 32.1 % (37.0-47.0); LYMPH # 0.9 10*3/uL (1.3-4.4); LYMPH % 17.4 % (27.0-41.0); MEAN CELL VOLUME 86.3 fl (81.0-99.0); MEAN CORPUSCULAR HGB 27.2 pg (27.0-31.0); MEAN CORPUSCULAR HGB CONC 31.5 g/dl (33.0-37.0); MEAN PLATELET VOLUME 9.7 fl (9.6-12.3); MONO # 0.6 10*3/uL (0.1-1.0); MONO % 11.6 % (3.0-9.0); NEUT # 3.5 10*3/uL (2.3-7.9); NEUT % 68.6 % (47.0-73.0); PLATELET COUNT AUTOMATED 224 10*3/uL (130-400); RED BLOOD COUNT 3.72 10*6/uL (4.10-5.10); RED CELL DISTRI WIDTH 17.9 % (0-14.5); WHITE BLOOD COUNT 5.1 10*3/uL (4.8-10.8)
[2021-05-09 12:36] LABS: ALBUMIN 3.1 gm/dl (3.1-4.5); CREATININE 1.26 mg/dL (0.55-1.02); POTASSIUM 4.2 mmol/L (3.5-5.1); TOTAL PROTEIN 6.6 gm/dL (6.4-8.2)
[2021-05-09 12:49] LABS: FREE T4 0.93 ng/dl (0.76-1.46); THYROID STIM HORMONE (HS) 2.43 uIU/ml (0.358-4.75)
== END | disposition home or self-care (01) ==
LOC: LAB 11:40
PROVIDERS: Family Medicine; ATTEND Internal Medicine Endocrinology, Diabetes & Metabolism
DX: I10 Essential (primary) hypertension (principal); E05.90 Thyrotoxicosis, unspecified without thyrotoxic crisis or storm

== ENCOUNTER → 2022-02-08 | Outpatient (CLI) | payer MEDICARE ==
[2022-02-08 09:50] LABS: BASO % 0.5 % (0.0-1.0); EOS # 0.1 10*3/uL (0.0-0.4); EOS % 1.7 % (1.0-4.0); HEMATOCRIT 34.7 % (37.0-47.0); MEAN CELL VOLUME 86.3 fl (81.0-99.0); MEAN CORPUSCULAR HGB 27.6 pg (27.0-31.0); MEAN PLATELET VOLUME 10.1 fl (9.6-12.3); MONO # 0.5 10*3/uL (0.1-1.0); MONO % 8.8 % (3.0-9.0); NEUT # 4.1 10*3/uL (2.3-7.9); NEUT % 71.7 % (47.0-73.0); PLATELET COUNT AUTOMATED 238 10*3/uL (130-400); RED BLOOD COUNT 4.02 10*6/uL (4.10-5.10); RED CELL DISTRI WIDTH 15.5 % (0-14.5); WHITE BLOOD COUNT 5.8 10*3/uL (4.8-10.8)
[2022-02-08 10:53] LABS: CREATININE 1.17 mg/dL (0.55-1.02); POTASSIUM 4.2 mmol/L (3.5-5.1); THYROXINE (T4) TOTAL 9.7 ug/dl (4.8-13.9); TOTAL PROTEIN 6.8 gm/dL (6.4-8.2)
[2022-02-08 10:59] LABS: THYROID STIM HORMONE (HS) 2.21 uIU/ml (0.358-4.75)
== END | disposition home or self-care (01) ==
LOC: LAB 09:04
PROVIDERS: Family Medicine; ATTEND Internal Medicine Endocrinology, Diabetes & Metabolism
DX: E03.9 Hypothyroidism, unspecified (principal); I48.91 Unspecified atrial fibrillation; E55.9 Vitamin D deficiency, unspecified; R60.9 Edema, unspecified

== ENCOUNTER → 2022-05-17 | Outpatient (CLI) | payer MEDICARE ==
[2022-05-17 09:45] LABS: FREE T4 1.03 ng/dl (0.89-1.76); THYROID STIM HORMONE (HS) 3.898 uIU/ml (0.550-4.780)
== END | disposition home or self-care (01) ==
LOC: LAB 09:06
PROVIDERS: ATTEND Internal Medicine Endocrinology, Diabetes & Metabolism
DX: Z51.81 Encounter for therapeutic drug level monitoring (principal); E55.9 Vitamin D deficiency, unspecified; E05.90 Thyrotoxicosis, unspecified without thyrotoxic crisis or storm

== ENCOUNTER → 2022-08-28 | Outpatient (CLI) | payer MEDICARE ==
[2022-08-28 11:17] LABS: BASO % 0.5 % (0.0-1.0); EOS # 0.1 10*3/uL (0.0-0.4); EOS % 2.2 % (1.0-4.0); HEMATOCRIT 36.3 % (37.0-47.0); LYMPH # 1.4 10*3/uL (1.3-4.4); LYMPH % 25.9 % (27.0-41.0); MEAN CELL VOLUME 86.4 fl (81.0-99.0); MEAN CORPUSCULAR HGB 27.4 pg (27.0-31.0); MEAN CORPUSCULAR HGB CONC 31.7 g/dl (33.0-37.0); MEAN PLATELET VOLUME 9.6 fl (9.6-12.3); MONO # 0.5 10*3/uL (0.1-1.0); MONO % 9.5 % (3.0-9.0); NEUT # 3.4 10*3/uL (2.3-7.9); NEUT % 61.4 % (47.0-73.0); PLATELET COUNT AUTOMATED 226 10*3/uL (130-400); RED CELL DISTRI WIDTH 15.5 % (0-14.5); WHITE BLOOD COUNT 5.5 10*3/uL (4.8-10.8)
[2022-08-28 11:43] LABS: FREE T4 0.9 ng/dl (0.89-1.76); POTASSIUM 4.3 mmol/L (3.4-5.1); THYROID STIM HORMONE (HS) 2.093 uIU/ml (0.550-4.780); TOTAL PROTEIN 6.7 gm/dL (6.0-8.0)
[2022-08-28 11:54] LABS: VITAMIN D, 25-HYDROXY 22.1 ng/mL (30-100)
== END | disposition home or self-care (01) ==
LOC: LAB 10:55
PROVIDERS: Family Medicine; ATTEND Internal Medicine Endocrinology, Diabetes & Metabolism
DX: I10 Essential (primary) hypertension (principal); E05.90 Thyrotoxicosis, unspecified without thyrotoxic crisis or storm; E55.9 Vitamin D deficiency, unspecified; E05.00 Thyrotoxicosis with diffuse goiter without thyrotoxic crisis or storm

== ENCOUNTER → 2023-05-28 | Outpatient (CLI) | payer MEDICARE ==
[2023-05-28 08:25] LABS: BASO % 0.6 % (0.0-1.0); EOS # 0.1 10*3/uL (0.0-0.4); EOS % 1.6 % (1.0-4.0); HEMATOCRIT 37.6 % (37.0-47.0); LYMPH # 1.6 10*3/uL (1.3-4.4); LYMPH % 26.2 % (27.0-41.0); MEAN CELL VOLUME 86.4 fl (81.0-99.0); MEAN CORPUSCULAR HGB 26.4 pg (27.0-31.0); MEAN CORPUSCULAR HGB CONC 30.6 g/dl (33.0-37.0); MEAN PLATELET VOLUME 9.5 fl (9.6-12.3); MONO # 0.6 10*3/uL (0.1-1.0); MONO % 10.1 % (3.0-9.0); NEUT # 3.8 10*3/uL (2.3-7.9); NEUT % 61.2 % (47.0-73.0); PLATELET COUNT AUTOMATED 257 10*3/uL (130-400); RED BLOOD COUNT 4.35 10*6/uL (4.10-5.10); RED CELL DISTRI WIDTH 15.6 % (0-14.5); WHITE BLOOD COUNT 6.2 10*3/uL (4.8-10.8)
[2023-05-28 08:46] LABS: POTASSIUM 4.1 mmol/L (3.4-5.1); TOTAL PROTEIN 7.1 gm/dL (6.0-8.0)
[2023-05-28 08:49] LABS: FREE T4 0.94 ng/dl (0.89-1.76)
== END ==
LOC: LAB 08:07
PROVIDERS: Family Medicine; ATTEND Internal Medicine Endocrinology, Diabetes & Metabolism
DX: N18.9 Chronic kidney disease, unspecified (principal); E55.9 Vitamin D deficiency, unspecified; E05.90 Thyrotoxicosis, unspecified without thyrotoxic crisis or storm; Z79.899 Other long term (current) drug therapy

== ENCOUNTER → 2023-08-20 | Outpatient (CLI) | payer MEDICARE ==
[2023-08-20 15:16] LABS: BASO % 0.4 % (0.0-1.0); EOS # 0.1 10*3/uL (0.0-0.4); EOS % 0.8 % (1.0-4.0); HEMATOCRIT 31.4 % (37.0-47.0); LYMPH % 13.2 % (27.0-41.0); MEAN CORPUSCULAR HGB 26.5 pg (27.0-31.0); MEAN CORPUSCULAR HGB CONC 31.5 g/dl (33.0-37.0); MEAN PLATELET VOLUME 8.9 fl (9.6-12.3); MONO # 0.6 10*3/uL (0.1-1.0); MONO % 8.5 % (3.0-9.0); NEUT # 5.8 10*3/uL (2.3-7.9); NEUT % 76.6 % (47.0-73.0); PLATELET COUNT AUTOMATED 292 10*3/uL (130-400); RED BLOOD COUNT 3.74 10*6/uL (4.10-5.10); RED CELL DISTRI WIDTH 14.7 % (0-14.5); WHITE BLOOD COUNT 7.6 10*3/uL (4.8-10.8)
[2023-08-20 15:52] LABS: POTASSIUM 4.6 mmol/L (3.4-5.1); T3 UPTAKE 33.1 % (22.4-36.7); THYROXINE (T4) TOTAL 8.5 ug/dl (4.5-10.9); TOTAL PROTEIN 6.8 gm/dL (6.0-8.0)
== END ==
LOC: LAB 15:03
PROVIDERS: ATTEND Family Medicine
DX: R53.83 Other fatigue (principal); E03.9 Hypothyroidism, unspecified; D64.9 Anemia, unspecified

== ENCOUNTER → 2023-09-26 | Outpatient (CLI) | payer MEDICARE | END | disposition home or self-care (01) | LOC: LAB 10:36 | PROVIDERS: ATTEND Physician Assistant | DX: I10 Essential (primary) hypertension (principal); I49.5 Sick sinus syndrome ==

== ENCOUNTER → 2023-11-28 | Outpatient (CLI) | payer MEDICARE ==
[2023-11-28 10:54] LABS: POTASSIUM 4.5 mmol/L (3.4-5.1)
[2023-11-28 10:56] LABS: FREE T4 0.97 ng/dl (0.89-1.76)
[2023-11-28 11:17] LABS: SGPT/ALT < 7 U/L (5-49)
== END | disposition home or self-care (01) ==
LOC: LAB 09:48
PROVIDERS: Physician Assistant; ATTEND Internal Medicine Endocrinology, Diabetes & Metabolism
DX: I10 Essential (primary) hypertension (principal); I49.5 Sick sinus syndrome; E05.90 Thyrotoxicosis, unspecified without thyrotoxic crisis or storm

== ENCOUNTER → 2024-05-28 | Outpatient (CLI) | payer MEDICARE ==
[~2024-05-28] MED LIST changes: +ALDACTONE25 MG PO; +CARVEDILOL25 MG PO; +CEPHALEXIN500 M1 PO; +DIGOXIN125 MCG PO; +DILT-XR120 MG PO; +HYDROCODONE-AC1 EAC1 PO
== END | disposition home or self-care (01) ==
LOC: US 00:37
PROVIDERS: ATTEND Internal Medicine Nephrology
DX: N32.89 Other specified disorders of bladder (principal); N18.30 Chronic kidney disease, stage 3 unspecified

== ENCOUNTER → 2024-06-16 | Outpatient (CLI) | payer MEDICARE ==
[2024-06-16 11:32] LABS: BASO % 0.4 % (0.0-1.0); EOS # 0.1 10*3/uL (0.0-0.4); EOS % 1.5 % (1.0-4.0); HEMATOCRIT 33.4 % (37.0-47.0); MEAN CELL VOLUME 83.9 fl (81.0-99.0); MEAN CORPUSCULAR HGB 26.1 pg (27.0-31.0); MEAN CORPUSCULAR HGB CONC 31.1 g/dl (33.0-37.0); MEAN PLATELET VOLUME 9.9 fl (9.6-12.3); MONO # 0.6 10*3/uL (0.1-1.0); MONO % 10.6 % (3.0-9.0); NEUT # 3.7 10*3/uL (2.3-7.9); NEUT % 71.3 % (47.0-73.0); PLATELET COUNT AUTOMATED 233 10*3/uL (130-400); RED BLOOD COUNT 3.98 10*6/uL (4.10-5.10); RED CELL DISTRI WIDTH 16.9 % (0-14.5); WHITE BLOOD COUNT 5.2 10*3/uL (4.8-10.8)
[2024-06-16 11:40] LABS: BILIRUBIN Negative (Negative); BLOOD 3+ (Negative); CLARITY Turbid (Clear); COLOR Dark Yellow (Yellow); GLUCOSE Negative (Negative); KETONE Negative (Negative); LEUKO ESTERASE 3+ (Negative); NITRITE Positive (Negative); PH 7.5 (4.5-8.0); SPECIFIC GRAVITY 1.015 (1.001-1.030)
[2024-06-16 12:03] LABS: POTASSIUM 3.8 mmol/L (3.4-5.1)
[2024-06-16 12:05] LABS: FREE T4 1.02 ng/dl (0.89-1.76); POTASSIUM 3.8 mmol/L (3.4-5.1)
[2024-06-16 12:15] LABS: BACTERIA 2+; RBC TNTC rbc/hpf (0-2); TRIP PHOS CRYSTALS TRACE; WBC TNTC wbc/hpf (0-5)
[2024-06-16 12:28] LABS: VITAMIN D, 25-HYDROXY 55.5 ng/mL (30-100)
== END | disposition home or self-care (01) ==
LOC: LAB 10:54
PROVIDERS: Internal Medicine Endocrinology, Diabetes & Metabolism; Internal Medicine Nephrology; ATTEND Physician Assistant
DX: N25.81 Secondary hyperparathyroidism of renal origin (principal); E55.9 Vitamin D deficiency, unspecified; N18.30 Chronic kidney disease, stage 3 unspecified; D63.1 Anemia in chronic kidney disease; E05.90 Thyrotoxicosis, unspecified without thyrotoxic crisis or storm; I49.5 Sick sinus syndrome

== ENCOUNTER → 2024-12-03 | Outpatient (CLI) | payer MEDICARE ==
[~2024-12-03] MED LIST changes: +ASPIRIN ADULT L81 M2 PO; +ATORVASTATIN CA40 M1 PO; +CIPRO250 MG PO; +IRON325 M1 PO; +IRON325 M3 PO; +LACTINEX 0.2 MG1 TAB PO; +TRIAMTERENE-HC1 EAC2; +TRIAMTERENE-HC1 EACH PO; +VANCOMYCIN HCL125 MG PO
[2024-12-03 11:16] LABS: FREE T4 0.94 ng/dl (0.89-1.76); SGPT/ALT 11 U/L (5-49)
== END ==
LOC: LAB 09:49
PROVIDERS: ATTEND Family Medicine
DX: E05.90 Thyrotoxicosis, unspecified without thyrotoxic crisis or storm (principal)

== ENCOUNTER → 2025-01-19 | Outpatient (CLI) | payer MEDICARE ==
[2025-01-19 11:15] LABS: BASO # 0.0 10*3/uL (0.0-0.1); BASO % 0.5 % (0.0-1.0); EOS # 0.1 10*3/uL (0.0-0.4); EOS % 1.2 % (1.0-4.0); MEAN CELL VOLUME 86.3 fl (81.0-99.0); MEAN CORPUSCULAR HGB 26.7 pg (27.0-31.0); MEAN PLATELET VOLUME 9.3 fl (9.6-12.3); MONO # 0.4 10*3/uL (0.1-1.0); MONO % 7.1 % (3.0-9.0); NEUT # 4.1 10*3/uL (2.3-7.9); NEUT % 71.7 % (47.0-73.0); NUCLEATED RED BLOOD CELL 0.0 % (0.0-0.0); NUCLEATED RED BLOOD CELL 0.0 10*3/uL (0.0-0.0); PLATELET COUNT AUTOMATED 225 10*3/uL (130-400); RED CELL DISTRI WIDTH 16.4 % (0-14.5)
[2025-01-19 11:40] LABS: BUN 33.0 mg/dl (9-23)
[2025-01-19 11:41] LABS: BUN 32.0 mg/dl (9-23); LDL CHOLESTEROL 60.0 mg/dL (9-159); SGPT/ALT 7.0 U/L (5-49)
[2025-01-19 11:44] LABS: VITAMIN D, 25-HYDROXY 33.8 ng/mL (30-100)
[2025-01-19 13:47] LABS: BILIRUBIN Negative (Negative); BLOOD 2+ (Negative); CLARITY Turbid (Clear); COLOR Yellow (Yellow); KETONE Negative (Negative); LEUKO ESTERASE 3+ (Negative); NITRITE Positive (Negative); PH 6.5 (4.5-8.0); SPECIFIC GRAVITY 1.015 (1.001-1.030); UROBILINOGEN 1.0 E.U./dl (0.0-1.0)
[2025-01-19 14:11] LABS: BACTERIA 4+
[2025-01-19 14:12] LABS: WBC 51-100 wbc/hpf (0-5)
== END | disposition home or self-care (01) ==
LOC: LAB 10:49
PROVIDERS: Family Medicine; ATTEND Internal Medicine Nephrology
DX: N25.81 Secondary hyperparathyroidism of renal origin (principal); N18.30 Chronic kidney disease, stage 3 unspecified; E55.9 Vitamin D deficiency, unspecified

== ENCOUNTER → 2025-02-11 | Outpatient (CLI) | payer MEDICARE | END | disposition home or self-care (01) | LOC: LAB 09:37 | PROVIDERS: ATTEND Family Medicine | DX: E11.65 Type 2 diabetes mellitus with hyperglycemia (principal) ==